=== PATIENT | female | born 1970 ===

== ENCOUNTER 2022-07-23 10:35 | Emergency (ER) | payer OTHER ==
[2022-07-23 12:14] LABS: HEMOGLOBIN 13.6 gm/dl (12.3-15.3); RED BLOOD COUNT 4.65 M/UL (4.00-5.10); WHITE BLOOD COUNT 13.1 K/UL (4.5-11.0)
[2022-07-23 12:35] LABS: BUN/CREATININE RATIO 12 (0-10)
== END 2022-07-23 14:25 | disposition home or self-care (01) ==
LOC: ER1 10:35
PROVIDERS: Family Medicine
DX: F11.23 Opioid dependence with withdrawal (principal); R10.9 Unspecified abdominal pain; F17.200 Nicotine dependence, unspecified, uncomplicated
CPT/HCPCS: 80053; 83690; 85025; 96374; 96375; 96376; 99284; J1200; J2550; J7030